=== PATIENT | male | born 1950 | race African-American/Black ===

== ENCOUNTER 2017-12-27 05:46 | Inpatient (IN) | payer OTHER ==
[~2017-12-27] VITALS: Ht 170.2 cm; Wt 75.3 kg
[2017-12-27] MEDS ORDERED: FORTAMET1000 MG (06:10)
== END 2017-12-29 14:14 | disposition home or self-care (01) | DRG 310 ==
LOC: ER 05:46 → EDBD 05:51 → ER 05:51 → SEC-K 16:51 → MEDI 16:51
PROC: BW28ZZZ Computerized Tomography (CT Scan) of Head (ICD-10-PCS; principal; 2017-12-27)
PROC: B246ZZZ Ultrasonography of Right and Left Heart (ICD-10-PCS; 2017-12-27)
PROC: 4A12X4Z Monitoring of Cardiac Electrical Activity, External Approach (ICD-10-PCS; 2017-12-27)
DX: I48.0 Paroxysmal atrial fibrillation (principal); E11.9 Type 2 diabetes mellitus without complications; F17.210 Nicotine dependence, cigarettes, uncomplicated